=== PATIENT | female | born 1955 | race Asian ===

== ENCOUNTER 2024-11-24 08:30 | Outpatient (CLI) | payer MEDICARE, SELFPAY | END 2024-11-24 08:31 | disposition home or self-care (01) | LOC: NFLDREF 11-26 10:25 | PROVIDERS: PCP Family Medicine; Referring Provider Family Medicine; Visit Provider Orthopaedic Surgery | DX: M10.072 Idiopathic gout, left ankle and foot (principal) | CPT/HCPCS: 84550 ==